=== PATIENT | female | born 1990 | race Caucasian/White ===

== ENCOUNTER → 2016-11-06 | Outpatient (CLI) | payer OTHER ==
[~2016-11-06] MED LIST: AMOX500C2 PO; BIRTH CONTROL PO; HYDR1TAB PO; HYDR1TAB66 PO
--- OUTSIDE RECORDS SUMMARY | 2016-11-06 09:09 | XMS REPORT | Continuity of Care Document ---
Author Author [facility] Address Unknown Phone Unavailable Allergies Medications Problems Date Dx Coded Attending Type Code Diagnosis Diagnosed By 03/11/2011 788.1 DYSURIA 03/11/2011 788.1 DYSURIA 03/11/2011 RICHY ESCOBAR APRN 788.1 DYSURIA 03/11/2011 HEBER VALDEZ APRN 788.1 DYSURIA 03/11/2011 CHEIKH TALLEY MD 788.1 DYSURIA 03/11/2011 RICHY ESCOBAR APRN 788.1 DYSURIA 03/11/2011 CONSTANTINE BRYSON DO 788.1 DYSURIA 04/27/2011 V25.41 SURVEILLANCE OF CONTRACEPTIVE PILL 04/27/2011 V25.41 SURVEILLANCE OF CONTRACEPTIVE PILL 04/27/2011 RICHY ESCOBAR APRN V25.41 SURVEILLANCE OF CONTRACEPTIVE PILL 04/27/2011 HEBER VALDEZ APRN V25.41 SURVEILLANCE OF CONTRACEPTIVE PILL 04/27/2011 CHEIKH TALLEY MD V25.41 SURVEILLANCE OF CONTRACEPTIVE PILL 04/27/2011 RICHY ESCOBAR APRN V25.41 SURVEILLANCE OF CONTRACEPTIVE PILL 04/27/2011 CONSTANTINE BRYSON DO V25.41 SURVEILLANCE OF CONTRACEPTIVE PILL 12/28/2011 461.9 SINUSITIS ACUTE 12/28/2011 461.9 SINUSITIS ACUTE 12/28/2011 RICHY ESCOBAR APRN 461.9 SINUSITIS ACUTE 12/28/2011 HEBER VALDEZ APRN 461.9 SINUSITIS ACUTE 12/28/2011 CHEIKH TALLEY MD 461.9 SINUSITIS ACUTE 12/28/2011 RICHY ESCOBAR APRN 461.9 SINUSITIS ACUTE 12/28/2011 CONSTANTINE BRYSON DO 461.9 SINUSITIS ACUTE 01/25/2012 919.4 INSECT BITE NONVENOMOUS OF OTHER MULTIPLE AND UNSPECIFIED SITES WITHOUT INFECTION 01/25/2012 919.4 INSECT BITE NONVENOMOUS OF OTHER MULTIPLE AND UNSPECIFIED SITES WITHOUT INFECTION 01/25/2012 SHAWN BAXTER, RICHY A 919.4 INSECT BITE NONVENOMOUS OF OTHER MULTIPLE AND UNSPECIFIED SITES WITHOUT INFECTION 01/25/2012 ROBERT VALDEZ APRNINA R 919.4 INSECT BITE NONVENOMOUS OF OTHER MULTIPLE AND UNSPECIFIED SITES WITHOUT INFECTION 01/25/2012 CHEIKH TALLEY MD 919.4 INSECT BITE NONVENOMOUS OF OTHER MULTIPLE AND UNSPECIFIED SITES WITHOUT INFECTION 01/25/2012 SHAWN BAXTER, RICHY A 919.4 INSECT BITE NONVENOMOUS OF OTHER MULTIPLE AND UNSPECIFIED SITES WITHOUT INFECTION 01/25/2012 BRYSON CONSTANTINE TINAJERO K 919.4 INSECT BITE NONVENOMOUS OF OTHER MULTIPLE AND UNSPECIFIED SITES WITHOUT INFECTION 05/02/2012 625.0 DYSPAREUNIA 05/02/2012 625.3 DYSMENORRHEA 05/02/2012 625.9 PELVIC PAIN 05/02/2012 V25.01 CONTRACEPTION - ORAL CONTRACEPTION 05/02/2012 V74.5 STD SCREEN 05/02/2012 625.0 DYSPAREUNIA 05/02/2012 625.3 DYSMENORRHEA 05/02/2012 625.9 PELVIC PAIN 05/02/2012 V25.01 CONTRACEPTION - ORAL CONTRACEPTION 05/02/2012 V74.5 STD SCREEN 05/02/2012 RICHY ESCOBAR APRN A 625.0 DYSPAREUNIA 05/02/2012 RICHY ESCOBAR APRN A 625.3 DYSMENORRHEA 05/02/2012 ALEENA ESCOBAR APRNIDI A 625.9 PELVIC PAIN 05/02/2012 RICHY ESCOBAR APRN A V25.01 CONTRACEPTION - ORAL CONTRACEPTION 05/02/2012 ALEENA ESCOBAR APRNIDI A V74.5 STD SCREEN 05/02/2012 JOSÉ MIGUEL BAXTER HEBER R 625.0 DYSPAREUNIA 05/02/2012 ROBERT VALDEZ APRNINA R 625.3 DYSMENORRHEA 05/02/2012 ROBERT VALDEZ APRNINA R 625.9 PELVIC PAIN 05/02/2012 ROBERT VALDEZ APRNINA R V25.01 CONTRACEPTION - ORAL CONTRACEPTION 05/02/2012 ROBERT VALDEZ APRNINA R V74.5 STD SCREEN 05/02/2012 CHEIKH TALLEY MD 625.0 DYSPAREUNIA 05/02/2012 CHEIKH TALLEY MD 625.3 DYSMENORRHEA 05/02/2012 CHEIKH TALLEY MD 625.9 PELVIC PAIN 05/02/2012 CHEIKH TALLEY MD V25.01 CONTRACEPTION - ORAL CONTRACEPTION 05/02/2012 CHEIKH TALLEY MD V74.5 STD SCREEN 05/02/2012 RICHY ESCOBAR APRN 625.0 DYSPAREUNIA 05/02/2012 RICHY ESCOBAR APRN 625.3 DYSMENORRHEA 05/02/2012 RICHY ESCOBAR APRN 625.9 PELVIC PAIN 05/02/2012 RICHY ESCOBAR APRN V25.01 CONTRACEPTION - ORAL CONTRACEPTION 05/02/2012 RICHY ESCOBAR APRN V74.5 STD SCREEN 05/02/2012 KRIS BRYSON DOA K 625.0 DYSPAREUNIA 05/02/2012 BRYSON DO CONSTANTINE K 625.3 DYSMENORRHEA 05/02/2012 BRAYDON TINAJERO CONSTANTINE K 625.9 PELVIC PAIN 05/02/2012 BRAYDON TINAJERO CONSTANTINE K V25.01 CONTRACEPTION - ORAL CONTRACEPTION 05/02/2012 BRAYDON TINAJERO CONSTANTINE K V74.5 STD SCREEN 06/04/2012 729.5 Overuse Syndrome - right 06/04/2012 729.5 Overuse Syndrome - right 06/04/2012 RICHY ESCOBAR APRN 729.5 Overuse Syndrome - right 06/04/2012 HEBER VALDEZ APRN 729.5 Overuse Syndrome - right 06/04/2012 CHEIKH TALLEY MD 729.5 Overuse Syndrome - right 06/04/2012 RICHY ESCOBAR APRN 729.5 Overuse Syndrome - right 06/04/2012 CONSTANTINE BRYSON DO 729.5 Overuse Syndrome - right 08/02/2012 466.0 BRONCHITIS, ACUTE 08/02/2012 786.07 WHEEZING 08/02/2012 786.2 COUGH 08/02/2012 466.0 BRONCHITIS, ACUTE 08/02/2012 786.07 WHEEZING 08/02/2012 786.2 COUGH 08/02/2012 RICHY ESCOBAR APRN 466.0 BRONCHITIS, ACUTE 08/02/2012 RICHY ESCOBAR APRN 786.07 WHEEZING 08/02/2012 RICHY ESCOBAR APRN 786.2 COUGH 08/02/2012 ROBERT VALDEZ APRNINA R 466.0 BRONCHITIS, ACUTE 08/02/2012 ROBERT VALDEZ APRNINA R 786.07 WHEEZING 08/02/2012 ROBERT VALDEZ APRNINA R 786.2 COUGH 08/02/2012 CHEIKH TALLEY MD 466.0 BRONCHITIS, ACUTE 08/02/2012 CHEIKH TALLEY MD 786.07 WHEEZING 08/02/2012 CHEIKH TALLEY MD 786.2 COUGH 08/02/2012 RICHY ESCOBAR APRN A 466.0 BRONCHITIS, ACUTE 08/02/2012 RICHY ESCOBAR APRN A 786.07 WHEEZING 08/02/2012 RICHY ESCOBAR APRN A 786.2 COUGH 08/02/2012 BRYSON DO, CONSTANTINE K 466.0 BRONCHITIS, ACUTE 08/02/2012 BRYSON DO, CONSTANTINE K 786.07 WHEEZING 08/02/2012 BRYSON DO, CONSTANTINE K 786.2 COUGH 05/07/2013 RICHY ESCOBAR APRN A V76.10 BREAST CANCER SCREENING 05/07/2013 RICHY ESCOBAR APRN A V76.2 CERVICAL CANCER SCREENING (PAP SMEAR) 05/07/2013 HEBER VALDEZ APRN R V76.10 BREAST CANCER SCREENING 05/07/2013 HEBER VALDEZ APRN R V76.2 CERVICAL CANCER SCREENING (PAP SMEAR) 05/07/2013 CHEIKH TALLEY MD V76.10 BREAST CANCER SCREENING 05/07/2013 CHEIKH TALLEY MD V76.2 CERVICAL CANCER SCREENING (PAP SMEAR) 05/07/2013 RICHY ESCOBAR APRN A V76.10 BREAST CANCER SCREENING 05/07/2013 RICHY ESCOBAR APRN A V76.2 CERVICAL CANCER SCREENING (PAP SMEAR) 01/22/2014 HEBER VALDEZ APRN R 704.8 OTHER SPECIFIED DISEASES OF HAIR AND HAIR FOLLICLES 01/22/2014 CHEIKH TALLEY MD 704.8 OTHER SPECIFIED DISEASES OF HAIR AND HAIR FOLLICLES 01/22/2014 RICHY ESCOBAR APRN 704.8 OTHER SPECIFIED DISEASES OF HAIR AND HAIR FOLLICLES 02/03/2014 CHEIKH TALLEY MD 110.3 DERMATOPHYTOSIS OF GROIN AND PERIANAL AREA 02/03/2014 RICHY ESCOBAR APRN 110.3 DERMATOPHYTOSIS OF GROIN AND PERIANAL AREA Procedures Code [place] [address] URINE TEST (IN-HOUSE) 11/11/2012 66911 GC/CHLAM URINE (STATE) 11/12/2012 32618 TRICHOMONAS (IN-HOUSE) 05/07/2013 16001 CULTURE UROGENITAL 05/08/2013 58877 GC/CHLAM PROBE (STATE) 05/08/2013 98076 PAP SMEAR 2012 Q0091 PAP SMEAR OBTAIN SMEAR 05/08/2013 65015 TEST, URINE (IN-HOUSE) 05/28/2014 Results Encounters ACCT No. Visit Date/Time Discharge Status Pt. Type Provider Facility Loc./Unit Complaint [id number] 05/28/2014 10:21:00 05/28/2014 23: 59:59 CLS Outpatient RICHY ESCOBAR APRN [id number] 02/09/2014 14:40:00 02/09/2014 23: 59:59 CLS Outpatient CHEIKH TALLEY MD [id number] 01/22/2014 14:17:00 01/22/2014 23: 59:59 CLS Outpatient HEBER VALDEZ APRN [id number] 05/07/2013 13:30:00 05/07/2013 23: 59:59 CLS Outpatient RICHY ESCOBAR APRN [id number] 11/11/2012 10:27:00 11/11/2012 23: 59:59 CLS Outpatient [id number] 08/02/2012 14:44:00 08/02/2012 23: 59:59 CLS Outpatient [id number] 08/02/2012 14:44:00 08/02/2012 23: 59:59 CLS Outpatient CONSTANTINE BRYSON DO
--- NOTE | 2016-11-06 20:50 | Diagnostic Imaging Report ---
EXAM: Ultrasound of the right breast. INDICATION: There is a palpable lump at 12 o'clock. There are no previous studies available for comparison. Reportedly, the patient has a palpable abnormality in the 12 o'clock position of the breast. The ultrasound examination in this area failed to show any discrete solid or cystic mass in this region. However if there is indeed a clinically palpable mass present, then biopsy should still be considered. IMPRESSION: 1. There is no evidence for a discrete solid or cystic mass near the patient's palpable abnormality. Recommendations as above. 2. These results were discussed with Padmaja GALARZA. ACR BI-RADS Category 1: Negative. Result letter will be mailed to the patient. Note: At least 10% of breast cancer is not imaged by mammography. Dictated by: Dictated on workstation # [id number]
== END ==
LOC: RAD 09:06
PROVIDERS: ATTEND Nurse Practitioner Adult Health
DX: N63 Unspecified lump in breast (principal)
CPT/HCPCS: 76641

== ENCOUNTER → 2018-03-19 | Outpatient (CLI) | payer OTHER ==
--- NOTE | 2018-03-19 17:13 | Diagnostic Imaging Report ---
INDICATION: survey. TECHNIQUE: Multiple real-time grayscale images were obtained over the gravid uterus. COMPARISON: None. FINDINGS: Yap viable IUP is in cephalic position. The placenta is anterior with no abruption or previa. The amniotic fluid volume is within normal limits. No pathological finding at the anatomical survey is apparent, however the four-chamber heart and the spinal structures are suboptimally visualized owing to lie. There is no abruption or previa. Measurements correlate with an average age at 20 weeks 2 days, the EDC sonographically is 08/04/2018. Measurements are congruent with the last menstrual period. IMPRESSION: Yap gestation measuring 20 weeks 2 days. No pathological finding revealed. Four-chamber heart and spinal structures are suboptimally visualized owing to lie. No abnormality. No pathological finding is demonstrated. Biometrical measurements are as follows: Biparietal 4.6 cm, age 20 weeks 0 days. Head circumference 17.7 cm, age 20 weeks 2 days. Abdominal circumference 14.9 cm, age 20 weeks 1 days. Femur length 3.4 cm, age 20 weeks 4 days. Sonographic estimate age: 20 weeks 2 days. Sonographic estimated date of delivery: 08/04/2018. Estimated Weight: 344 gm (+/- 50 gm). LMP percentile: 62%. heart rate: 153 beats per minute. number: 1 of 1. Dictated by: Dictated on workstation # [id number]
== END ==
LOC: RAD 15:35
PROVIDERS: ATTEND Obstetrics & Gynecology
DX: Z36.89 Encounter for other specified antenatal screening (principal); Z3A.20 20 weeks gestation of pregnancy
CPT/HCPCS: 76805

== ENCOUNTER 2018-08-07 19:00 | Inpatient (IN) | payer OTHER ==
[~2018-08-07] VITALS: Ht 172.7 cm; Wt 118.4 kg
[2018-08-07 19:28] VITALS: BP 134/84
[2018-08-07] MEDS: D5 LR IV SOLUTION 1,000 ML IV SCH (19:35)
[2018-08-07] MEDS ORDERED: D5 LR IV SOLUTION 1,000 ML IV ONE (19:59)
[2018-08-07] MEDS ORDERED: MISOPROSTOL 100 MCG (CYTOTEC) TAB ONE (20:24)
[2018-08-07 20:33] VITALS: BP 120/68
[2018-08-07] MEDS ORDERED: LACTATED RINGERS 1,000 ML IV SCH (20:41)
[2018-08-07] MEDS ORDERED: MISOPROSTOL 100 MCG (CYTOTEC) TAB PO ONE (20:45)
[2018-08-07] MEDS ORDERED: PNV11TAB5 PO (21:06)
[2018-08-07 21:08] VITALS: BP 138/80
[2018-08-07 21:21] LABS: BASOPHILS % (AUTO) 0 % (0-10); EOSINOPHILS # (AUTO) 0.1 10^3/uL (0.0-0.3); EOSINOPHILS % (AUTO) 1 % (0-10); HEMATOCRIT 34 % (35-52); LYMPHOCYTES # (AUTO) 2.2 X 10^3 (1.0-4.0); LYMPHOCYTES % (AUTO) 18 % (12-44); MEAN CORPUSCULAR HEMOGLOBIN 30 PG (25-34); MEAN CORPUSCULAR HGB CONC 33 G/DL (32-36); MEAN CORPUSCULAR VOLUME 92 FL (80-99); MEAN PLATELET VOLUME 11.4 FL (7.4-10.4); MONOCYTES % (AUTO) 8 % (0-12); NEUTROPHILS # (AUTO) 8.7 X 10^3 (1.8-7.8); NEUTROPHILS % (AUTO) 73 % (42-75); PLATELET COUNT 288 10^3/uL (130-400); RED BLOOD COUNT 3.66 10^6/uL (4.35-5.85); RED CELL DISTRIBUTION WIDTH 14.7 % (10.0-14.5); WHITE BLOOD COUNT 11.9 10^3/uL (4.3-11.0)
[2018-08-07] MEDS ORDERED: AMPICILLIN FOR IV USE 2,000 MG in NS (IVPB) 50 ML IV ONE (21:26)
--- NOTE | 2018-08-07 21:56 | History & Physical-OB ---
OB - Chief Complaint & HPI Date/Time Date of Admission: Date of Admission: Aug 07, 2018 at 7:00 pm Date seen by a Provider: Aug 07, 2018 Time Seen by a Provider: 21:45 Chief Complaint/History OB-Reason for Admission/Chief: Induction of Labor Hx : 1 Hx Para: 0 Expected Date of Delivery: Aug 06, 2018 Gestational Age in Weeks: 40 Gestational Age in Days: 1 Indication for induction: post dates Admission Nurse Assessment Rev: Yes History of Labs A pos Antibody neg RI RPR NR HBsAg NR HIV NR GC neg GBS pos Allergies and Home Medications Allergies Coded Allergies: No Known Drug Allergies (Verified , 02/05/09) Home Medications Akv464/FA/Omega3/Dha/Fish Oil 1 Each Tab.chew, 1 EACH PO DAILY, (Reported) Patient Home Medication List Home Medication List Reviewed: Yes OB - History Hx of Present Care: Yes Ultrasounds: Normal mid trimester US Obstetrical Complications: None Medical Complications: None Delivery History Hx Blood Disorders: No Patient Past Medical History BMI >35 Social History/Family History Recent Infectious Disease Expo: No Alcohol Use: Denies Use Recreational Drug Use: No Immunizations Date of Influenza Vaccine: May 31, 2018 OB - Admission Exam Physical Exam HEENT: NCAT Heart: Rhythm Normal Lungs: Clear Abdomen: Gravid Extremities: Normal Reflexes: Normal Cervical Dilatation: 1cm Effacement: 75% Station: -1 Membranes: Intact Heart Rate: 130's Accelerations: Accelerations Present Decelerations: No Decelerations Short Term Variability: Present Prizer Hand Variability: Average (6-25) Contractions on Admission: 6-10 Minutes Apart Intensity: Mild Fontaine Scoring Tool (Modified) Dilation (cm): 1-2cm (1) Effacement (%): 51-79% (2) Descent/Station: -1,0 (2) Cervix Consistency: Soft (2) Cervix Position: Anterior (2) Subtract 1 point for: Nulliparity (-1) Fontaine Score: 8 Labs Laboratory Tests Test 08/07/18 19:35 Range/Units White Blood Count 11.9 H 4.3-11.0 10^3/uL Red Blood Count 3.66 L 4.35-5.85 10^6/uL Hemoglobin 11.0 L 11.5-16.0 G/DL Hematocrit 34 L 35-52 % Mean Corpuscular Volume 92 80-99 FL Mean Corpuscular Hemoglobin 30 25-34 PG Mean Corpuscular Hemoglobin Concent 33 32-36 G/DL Red Cell Distribution Width 14.7 H 10.0-14.5 % Platelet Count 288 130-400 10^3/uL Mean Platelet Volume 11.4 H 7.4-10.4 FL Neutrophils (%) (Auto) 73 42-75 % Lymphocytes (%) (Auto) 18 12-44 % Monocytes (%) (Auto) 8 0-12 % Eosinophils (%) (Auto) 1 0-10 % Basophils (%) (Auto) 0 0-10 % Neutrophils # (Auto) 8.7 H 1.8-7.8 X 10^3 Lymphocytes # (Auto) 2.2 1.0-4.0 X 10^3 Monocytes # (Auto) 1.0 0.0-1.0 X 10^3 Eosinophils # (Auto) 0.1 0.0-0.3 10^3/uL Basophils # (Auto) 0.0 0.0-0.1 10^3/uL OB - Assessment/Plan/Diagnosis Assessment Assessment: induction of labor Admission Dx 28 yo @ 40.1 weeks Post dates induction of labor GBS pos Admission Status: Inpatient Order (span 2 midnights) Reason for Inpatient Admission: 28 yo @ 40.1 weeks Post dates induction of labor GBS pos Plan Plan: Induction Induction Method: per Misoprostol Protocol ROSE DHILLON DO Aug 07, 2018 9:56 pm
[2018-08-07] MEDS: CATHETER FLUSH 10 ML SYR IV SCH (22:07)
[2018-08-07 22:10] VITALS: BP 142/83
[2018-08-07 22:59] VITALS: BP 140/83
[2018-08-08] VITALS (40 sets, daily range): BP systolic 107–185; BP diastolic 57–104
[2018-08-08] MEDS: MISOPROSTOL 100 MCG (CYTOTEC) TAB PO SCH ×2 (00:33→05:15)
[2018-08-08] MEDS ORDERED: HYDROmorphone 2 MG/ML VIAL (DILAUDID) IV ONE (01:15)
[2018-08-08] MEDS ORDERED: LIDOCAINE PF 2% 5 ML (XYLOCAINE) VIAL ONE (03:59)
[2018-08-08] MEDS ORDERED: BUPIVACAINE 0.25% 30 ML (SENSORCAINE) VIAL ONE (03:59)
[2018-08-08] MEDS ORDERED: fentaNYL INJECTION 100 MCG/2 ML AMP ONE (03:59)
[2018-08-08] MEDS: D5 LR IV SOLUTION 1,000 ML IV SCH (04:19)
[2018-08-08] MEDS ORDERED: LIDOCAINE PF 1% 5 ML (XYLOCAINE) AMP INJ ONE (04:27)
[2018-08-08] MEDS ORDERED: LACTATED RINGERS 1,000 ML IV ONE ×2 (04:50)
[2018-08-08] MEDS ORDERED: EPIDURAL (SUFENTA 0.6MCG/ML BUPIVA 0.125%) 100 ML BAG EPI PRN (05:00)
[2018-08-08] MEDS ORDERED: METOCLOPRAMIDE INJ 10 MG/2 ML (REGLAN) IV PRN (05:00)
[2018-08-08] MEDS ORDERED: ONDANSETRON 4 MG/2 ML (SDV) Z0FRAN IV PRN (05:00)
[2018-08-08] MEDS ORDERED: NALOXONE 0.4 MG/ML 1 ML (NARCAN) VIAL IV PRN (05:00)
[2018-08-08] MEDS: CATHETER FLUSH 10 ML SYR IV SCH (05:16)
[2018-08-08] MEDS ORDERED: AMPICILLIN FOR IV USE 1,000 MG in NS (IVPB) 50 ML IV SCH (07:00)
[2018-08-08] MEDS ORDERED: LIDOCAINE/EPI 1%-1:200,000 (XYLOCAINE) 10 ML VIAL INJ ONE (07:11)
[2018-08-08] MEDS: OXYTOCIN/NORMAL SALINE 500 ML IV SCH ×2 (07:29→08:15)
[2018-08-08] MEDS ORDERED: HYDROcodone/APAP 5 MG/325 MG (LORTAB) TAB PO PRN (08:00)
[2018-08-08] MEDS ORDERED: DIBUCAINE (NUPERCAINAL) 1% OINT 30 GM TOP PRN (08:00)
[2018-08-08] MEDS ORDERED: BENZOCAINE/MENTHOL (DERMOPLAST) 56 ML CAN TP PRN (08:00)
[2018-08-08] MEDS ORDERED: WITCH HAZEL(TUCKS) 40 EA JAR TOP PRN (08:00)
[2018-08-08] MEDS ORDERED: MEASLES,MUMPS,RUBELLA 1 EA INJ SQ ONE (08:00)
[2018-08-08] MEDS ORDERED: TETANUS,DIPTH,PERTUSS P/F (BOOSTRIX) 0.5 ML VIAL IM ONE (08:00)
--- NOTE | 2018-08-08 08:04 | OB Labor & Delivery Record ---
L&D History Date of Service Date of Service: Aug 08, 2018 History Expected Date of Delivery: Aug 06, 2018 Gestational Age in Weeks: 40 Hx : 1 Hx Para: 0 Complications Events: Routine care Operative Indications (Cesarea: N/A-Vaginal Delivery Intrapartal Events: None L&D Stage1 Stage One Onset of Labor - Date: Aug 08, 2018 Monitors and Tracing Monitor Mode: External Heart Rate: 135 Monitor Accelerations: Uniform Monitor Decelerations: None Station: -2 Mcc Variability: Average (6-10) Short Term Variability: Present Presentation: Vertex Vital Signs VS - Last 72 Hours, by Label 08/07/18 08/07/18 08/07/18 08/07/18 19:28 20:33 21:08 22:10 Temp 98.5 Pulse 85 74 79 77 Resp 18 18 18 18 B/P (MAP) 134/84 (101) 120/68 (85) 138/80 (99) 142/83 (102) O2 Delivery Room Air Room Air Room Air Room Air 08/07/18 08/08/18 08/08/18 08/08/18 22:59 02:08 03:53 04:05 Temp 97.1 97.6 Pulse 71 91 60 78 Resp 18 18 18 18 B/P (MAP) 140/83 (102) 138/64 (88) 140/83 (102) 132/79 (96) Pulse Ox 99 100 O2 Delivery Room Air Room Air Room Air Room Air 08/08/18 08/08/18 08/08/18 08/08/18 04:09 04:12 04:15 04:18 Pulse 68 69 71 77 Resp 18 18 18 18 B/P (MAP) 134/65 (88) 151/65 (93) 139/62 (87) 142/64 (90) Pulse Ox 98 100 100 100 O2 Delivery Room Air Room Air Room Air Room Air 08/08/18 08/08/18 08/08/18 08/08/18 04:20 04:24 04:27 04:29 Pulse 71 75 67 68 Resp 18 18 18 18 B/P (MAP) 145/62 (89) 157/72 (100) 128/60 (82) 139/58 (85) Pulse Ox 100 100 O2 Delivery Room Air Room Air Room Air Room Air 1208/08/18 08/08/18 08/08/18 04:32 04:35 04:42 04:45 Pulse 72 77 73 86 Resp 18 18 18 18 B/P (MAP) 143/77 (99) 156/71 (99) 149/95 (113) 143/77 (99) Pulse Ox 97 97 99 99 O2 Delivery Room Air Room Air Room Air Room Air 08/08/18 08/08/18 08/08/18 08/08/18 04:47 04:50 04:58 05:02 Pulse 67 77 81 102 Resp 18 18 18 18 B/P (MAP) 141/66 (91) 132/67 (88) 123/76 (92) 112/57 (75) Pulse Ox 100 100 100 99 O2 Delivery Room Air Room Air Room Air Room Air 08/08/18 08/08/18 08/08/18 08/08/18 05:08 05:12 05:25 05:42 Temp 96.3 Pulse 98 93 71 64 Resp 18 18 18 18 B/P (MAP) 123/71 (88) 126/72 (90) 126/70 (88) 128/78 (95) Pulse Ox 100 100 99 97 O2 Delivery Room Air Room Air Room Air Room Air 08/08/18 08/08/18 08/08/18 08/08/18 05:57 06:06 06:18 06:28 Pulse 62 70 79 79 Resp 18 18 18 18 B/P (MAP) 134/77 (96) 144/81 (102) 123/64 (83) 144/81 (102) Pulse Ox 98 97 99 100 O2 Delivery Room Air Room Air Room Air Room Air 08/08/18 08/08/18 06:31 06:55 Pulse 70 88 Resp 18 18 B/P (MAP) 143/81 (101) 185/86 (119) Pulse Ox 99 99 O2 Delivery Room Air Room Air Rupture of Membranes Spontaneous Ruture of Membrane: Yes Amniotic Membrane Rupture Time: 0325 Amniotic Membrane Fluid Desc.: Clear Amniotic Fluid Membrane Tests: Nitrazine Positive Vaginal Bleeding Description: Normal Show Induction/Anesthesia Epidural Cath Placement - Time: 0435 Progress/Notes Progressed to complete and +1 after epidural was placed without any other augmentation L&D Stage2 Stage Two Stage II Date: Aug 08, 2018 Monitors and Tracing Monitor Mode: External Heart Rate: 130 Monitor Decelerations: Variable Oil Change Technician Variability: Moderate (11-25) Short Term Variability: Present Position: Right Occiput Anterior Presentation: Vertex Signs of Distress by FHT Signs of Distress Prolonged FHR deceleration to the 60s with no recovery, so urgently a kiwi vacuum was placed midsagital suture of the vertex and patient encouraged to push while gentle downward traction allowed for delivery of head over RML episiotomy. Nuchal cord reduced x 1 Cord Descript/Complications Cord Vessel Description: 3 Vessels Delivery Type Infant Delivery Method: Low Vacuum Extraction Anterior Shoulder: Right Episiotomy/Perineal Laceration Laceraction(s)/Extensions: Yes Episiotomy Description: Right Mediolateral Location Modifier: Right Sutures Used: Vicryl Condition of Infant Delivery 1 minute Comment: 8 5 minute Comment: 9 Condition of Infant Condition of Infant: Living Exam: No Observed Abnormalities Live male infant 7lbs 2 oz. Resuscitation Resuscitation: N/A - Spontaneous Resp L&D Stage3 Stage Three Stage III Date: Aug 08, 2018 Stage III Time: 07:45 Pictocin Pitocin Administration Comment: 30 mu wide open at delivery Placenta Delivery Placenta Delivery: Spontaneous Delivery Summary Summary Estimated blood loss (mL): 400 Attending at delivery: oRse Dhillon DO Condition of Delivery Examined: Cervix Examined, Uterus Explored Post Hemorrhage: No Condition of Mother stable Condition of Infant (s) stable ROSE DHILLON DO Aug 08, 2018 08:04
--- NOTE | 2018-08-08 08:11 | Discharge Inst-Women's Service ---
Discharge Inst-Women's Serv Depart Medication/Instructions New, Converted or Re-Newed RX: RX on Chart Final Diagnosis PPD 1 VAVD Consults/Follow Up Additional Follow Up: Yes Orders/Referrals Dr. Dhillon in 6 weeks Activity Activity: Activity as Tolerated Driving Instructions: No Driving for 1 Week NO SMOKING: NO SMOKING Nothing Inside Vagina: No Douching, No [place], No Tampons Diet Discharge Diet: No Restrictions Symptoms to Report to : Bleeding Excessive, Pain Increased, Fever Over 101 Degrees F, Vaginal Bleeding Increase, Questions/Concerns For Any Problems or Questions: Contact Your Physician ROSE DHILLON DO Aug 08, 2018 08:11
[2018-08-08] MEDS ORDERED: ACHD5005 PO (08:13)
[2018-08-08] MEDS ORDERED: FERR325T18 PO (08:13)
[2018-08-08] MEDS ORDERED: DIBU30OI TOP (08:13)
[2018-08-08] MEDS ORDERED: IBUP-844 PO (08:13)
[2018-08-08] MEDS ORDERED: DOCU100C37 PO (08:13)
[2018-08-08] MEDS: IBUPROFEN 600 MG (MOTRIN) TAB PO SCH ×3 (08:16→20:54)
[2018-08-08] MEDS: FERROUS SULF 325 MG (IRON) TAB PO SCH (09:00)
[2018-08-08] MEDS: DOCUSATE SODIUM 100 MG (COLACE) CAP PO SCH ×2 (09:00→20:54)
--- NOTE | 2018-08-08 10:07 | Anesthesia-Regional Post-Op ---
Regional Patient Condition Mental Status: Alert, Oriented x3 Circulation: Same as Pre-Op Headache: Absent Sensation: Full Recovery Motor Block: Absent Post Op Complications Complications None Follow Up Care/Instructions Patient Instructions None needed. Anesthesia/Patient Condition Patient is doing well, no complaints, stable vital signs, no apparent adverse anesthesia problems. No complications reported per nursing. ENMANUEL MILLER CRNA Aug 08, 2018 10:07
[2018-08-08] MEDS ORDERED: CATHETER FLUSH 10 ML SYR IV SCH (14:00)
[2018-08-09 00:30] VITALS: BP 115/68
[2018-08-09 03:47] VITALS: BP 119/68
[2018-08-09] MEDS: IBUPROFEN 600 MG (MOTRIN) TAB PO SCH ×3 (03:47→15:21)
[2018-08-09 06:58] LABS: BASOPHILS % (AUTO) 0 % (0-10); EOSINOPHILS # (AUTO) 0.1 10^3/uL (0.0-0.3); EOSINOPHILS % (AUTO) 1 % (0-10); HEMATOCRIT 28 % (35-52); HEMOGLOBIN 9.2 G/DL (11.5-16.0); LYMPHOCYTES % (AUTO) 15 % (12-44); MEAN CORPUSCULAR HEMOGLOBIN 30 PG (25-34); MEAN CORPUSCULAR HGB CONC 33 G/DL (32-36); MEAN CORPUSCULAR VOLUME 93 FL (80-99); MEAN PLATELET VOLUME 10.5 FL (7.4-10.4); MONOCYTES # (AUTO) 0.9 X 10^3 (0.0-1.0); MONOCYTES % (AUTO) 7 % (0-12); NEUTROPHILS # (AUTO) 10.3 X 10^3 (1.8-7.8); NEUTROPHILS % (AUTO) 77 % (42-75); PLATELET COUNT 237 10^3/uL (130-400); RED BLOOD COUNT 3.03 10^6/uL (4.35-5.85); RED CELL DISTRIBUTION WIDTH 14.9 % (10.0-14.5); WHITE BLOOD COUNT 13.3 10^3/uL (4.3-11.0)
[2018-08-09] MEDS ORDERED: PRENATAL VITAMIN 1 EA TAB PO SCH (07:00)
--- NOTE | 2018-08-09 09:04 | Postpartum Progress Note ---
Note Note Day # 1 Subjective: Patient is without complaints. Ambulating, voiding. Tolerating a regular diet without nausea or vomiting. Normal lochia. Pain is well controlled with oral pain medications. Objective: Vital Sign - Last 24 Hours 08/08/18 08/08/18 08/08/18 08/08/18 09:43 12:15 15:40 20:54 Temp 97.9 98.3 98.4 Pulse 117 84 95 103 Resp 18 18 18 18 B/P (MAP) 107/59 (75) 114/62 (79) 123/73 (90) 115/69 (84) Pulse Ox 96 95 97 O2 Delivery Room Air Room Air Room Air Room Air 08/09/18 08/09/18 00:30 03:47 Temp 98.8 98.8 Pulse 80 89 Resp 18 18 B/P (MAP) 115/68 (84) 119/68 (85) Pulse Ox 97 97 O2 Delivery Room Air Room Air Physical Exam: General - Alert and oriented, no apparent distress Abdomen - Soft, appropriately tender to palpation, non-distended, fundus firm at umbilicus Extremities - no edema, negative Char's bilaterally Assessment: PPD 1 VAVD Acute blood loss anemia Plan: Routine care. Encourage breast feeding. Encourage ambulation. Ferrous sulfate supplementation. Plan for discharge later today Vitals - Labs Vital Signs - I&O Vital Signs Date Time Temp Pulse Resp B/P (MAP) Pulse Ox O2 Delivery O2 Flow Rate FiO2 08/09/18 03:47 98.8 89 18 119/68 (85) 97 Room Air 08/09/18 00:30 98.8 80 18 115/68 (84) 97 Room Air 08/08/18 20:54 98.4 103 18 115/69 (84) 97 Room Air 08/08/18 15:40 98.3 95 18 123/73 (90) 95 Room Air 08/08/18 12:15 97.9 84 18 114/62 (79) 96 Room Air 08/08/18 09:43 117 18 107/59 (75) Room Air Labs Laboratory Tests 08/09/18 06:43: White Blood Count 13.3H, Red Blood Count 3.03L, Hemoglobin 9.2L, Hematocrit 28L , Mean Corpuscular Volume 93, Mean Corpuscular Hemoglobin 30, Mean Corpuscular Hemoglobin Concent 33, Red Cell Distribution Width 14.9H, Platelet Count 237, Mean Platelet Volume 10.5H, Neutrophils (%) (Auto) 77H, Lymphocytes (%) (Auto) 15, Monocytes (%) (Auto) 7, Eosinophils (%) (Auto) 1, Basophils (%) (Auto) 0, Neutrophils # (Auto) 10.3H, Lymphocytes # (Auto) 2.0, Monocytes # (Auto) 0.9, Eosinophils # (Auto) 0.1, Basophils # (Auto) 0.0 ROSE DHILLON DO Aug 09, 2018 09:04
[2018-08-09 09:14] VITALS: BP 120/65
[2018-08-09] MEDS: DOCUSATE SODIUM 100 MG (COLACE) CAP PO SCH (09:16)
[2018-08-09] MEDS: FERROUS SULF 325 MG (IRON) TAB PO SCH (09:16)
== END 2018-08-09 17:40 | disposition home or self-care (01) | DRG 806 ==
LOC: LDRP 19:00
PROVIDERS: ADMIT Obstetrics & Gynecology; ATTEND Obstetrics & Gynecology
PROC: 10D07Z6 Extraction of Products of Conception, Vacuum, Via Natural or Artificial Opening (ICD-10-PCS; principal; 2018-08-08)
PROC: 0W8NXZZ Division of Female Perineum, External Approach (ICD-10-PCS; 2018-08-08)
DX: O48.0 Post-term pregnancy (principal); O76 Abnormality in fetal heart rate and rhythm complicating labor and delivery; O99.03 Anemia complicating the puerperium; D62 Acute posthemorrhagic anemia; O69.81X0 Labor and delivery complicated by cord around neck, without compression, not applicable or unspecified; O99.820 Streptococcus B carrier state complicating pregnancy; Z3A.40 40 weeks gestation of pregnancy; Z37.0 Single live birth
CPT/HCPCS: 36415; 85025; 86850; 86900; 86901

== ENCOUNTER → 2020-04-27 | Outpatient (CLI) | payer OTHER ==
[~2020-04-27] MED LIST changes: +ACHD5005 PO; +DIBU30OI TOP; +DOCU100C37 PO; +FERR325T18 PO; +IBUP-844 PO; +PNV11TAB5 PO
== END ==
LOC: LABNPT 08:25
PROVIDERS: ATTEND Obstetrics & Gynecology
DX: Z20.9 Contact with and (suspected) exposure to unspecified communicable disease (principal); Z20.828 Contact with and (suspected) exposure to other viral communicable diseases
CPT/HCPCS: 87635

== ENCOUNTER → 2021-11-01 | Outpatient (CLI) | payer BC ==
--- NOTE | 2021-11-01 10:18 | Diagnostic Imaging Report ---
EXAMINATION: CHEST (PA AND LATERAL) CLINICAL INDICATION: 31-year-old female, cough. COMPARISON: None. FINDINGS: Heart size and mediastinal contours are unremarkable. There is no identified pneumothorax. There is no pleural effusion. There is no identified focal airspace consolidation. IMPRESSION: No identified acute cardiopulmonary abnormality. Dictated by: Dictated on workstation # [id number]
== END ==
LOC: RAD 09:24
PROVIDERS: ATTEND Student in an Organized Health Care Education/Training Program
DX: R05.9 Cough, unspecified (principal)
CPT/HCPCS: 71046